=== PATIENT | male | born 1995 | race Caucasian/White ===

== ENCOUNTER 2016-11-13 21:34 | Emergency (ER) | payer BC ==
[2016-11-13 21:40] VITALS: RESP 16
[2016-11-13] MEDS ORDERED: KETOROLAC 30 MG/1 ML SDV IVP ONE (21:56)
[2016-11-13] MEDS ORDERED: NS 1,000 ML IV ONE ×2 (21:56)
--- NOTE | 2016-11-13 21:59 | EDPHY ---
HPI/HX/ROS/PE/MDM Narrative: CHIEF COMPLAINT: Vomiting, malaise HPI: The patient is a 21-year-old male with no significant past medical history. He has been in his usual state of health until this morning when he developed body aches, subjective fever, vomiting and diarrhea, both of which were nonbloody. Patient states he has been unable to hold down food or fluids secondary to vomiting. He complains of mild abdominal cramping only after significant emesis. He denies abdominal pain at this time. He has no known sick contacts. No history of antibiotic use, out of the country travel or unusual foods. REVIEW OF SYSTEMS: Aside from elements discussed in the HPI, a comprehensive 10-point review of systems was reviewed and is negative. PMH: None significant. No history of abdominal surgery. SOCIAL HISTORY: Single. Student. Denies alcohol or drug abuse. PHYSICAL EXAM: General:Patient is alert, in no acute distress. ENT:Eyes are normal to inspection. ENT inspection normal. Neck: Normal inspection. Full range of motion. Respiratory:No respiratory distress. Breath sounds normal bilaterally. Cardiovascular: Regular rate and rhythm. Strong peripheral pulses. Normal cap refill. Abdomen:The abdomen is nontender to palpation. There are no peritoneal signs. There are normal bowel sounds. Back: Normal to inspection. No tenderness to palpation. Skin: Normal color. No rash. Warm and dry. Extremities: Normal appearance. Full range of motion. Neuro: Oriented x3. Normal motor function. Normal sensory function. MDM: The patient was treated with IV fluid and Zofran. On re-evaluation at 11:40 p.m., he is remarkably better. He is tolerating fluids by mouth without difficulty. His vital signs are normal. I offered him further observation in the emergency department but he would like to go home. We discussed strict return precautions. There are multiple patients in the ER of the similar age and gender all with the same symptoms, so I suspect this likely represents a viral gastroenteritis. I have very low suspicion for appendicitis, bowel obstruction, sepsis, diverticulitis or C diff. - Data Points Laboratory Results: Laboratory Results 11/13/16 22:10 11/13/16 22:10 11/13/16 11/13/16 23:10 22:10 WBC 12.83 H 10^3/uL (3.80-9.50) RBC 5.49 10^6/uL (4.40-6.38) Hgb 17.4 g/dL (13.7-17.5) Hct 51.9 H % (40.0-51.0) MCV 94.5 fL (81.5-99.8) MCH 31.7 pg (27.9-34.1) MCHC 33.5 g/dL (32.4-36.7) RDW 13.2 % (11.5-15.2) Plt Count 199 10^3/uL (150-400) MPV 10.2 fL (8.7-11.7) Neut % (Auto) 92.5 H % (39.3-74.2) Lymph % (Auto) 2.7 L % (15.0-45.0) [place] % (Auto) 3.6 L % (4.5-13.0) Eos % (Auto) 0.4 L % (0.6-7.6) Baso % (Auto) 0.3 % (0.3-1.7) Nucleat RBC Rel Count 0.0 % (0.0-0.2) Absolute Neuts (auto) 11.87 H 10^3/uL (1.70-6.50) Absolute Lymphs (auto) 0.34 L 10^3/uL (1.00-3.00) Absolute Monos (auto) 0.46 10^3/uL (0.30-0.80) Absolute Eos (auto) 0.05 10^3/uL (0.03-0.40) Absolute Basos (auto) 0.04 10^3/uL (0.02-0.10) Absolute Nucleated RBC 0.00 10^3/uL (0-0.01) Immature Gran % 0.5 % (0.0-1.1) Immature Gran # 0.07 10^3/uL (0.00-0.10) Sodium 142 mEq/L (134-144) Potassium 4.6 mEq/L (3.5-5.2) Chloride 102 mEq/L (97-110) Carbon Dioxide 25 mEq/l (22-31) Anion Gap 15 mEq/L (8-16) BUN 18 mg/dL (7-23) Creatinine 1.0 mg/dL (0.7-1.3) Estimated GFR > 60 Glucose 96 mg/dL (70-100) Calcium 9.5 mg/dL (8.5-10.4) Lipase 39.0 IU/L (23-300) Influenza Typ A,B (DFA) NEGATIVE FOR FLU (NEGATIVE) Medications Given: Discontinued Medications Sodium Chloride (Ns) 1,000 mls @ 0 mls/hr IV ONCE ONE PRN Reason: Wide Open Stop: 11/13/16 21:57 Last Admin: 11/13/16 22:20 Dose: 1,000 mls Sodium Chloride (Ns) 1,000 mls @ 0 mls/hr IV ONCE ONE PRN Reason: Wide Open Stop: 11/13/16 21:57 Last Admin: 11/13/16 23:09 Dose: 1,000 mls Ketorolac Tromethamine (Toradol) 30 mg IVP EDNOW ONE Stop: 11/13/16 21:57 Last Admin: 11/13/16 22:20 Dose: 30 mg Ondansetron HCl (Zofran) 4 mg IVP EDNOW ONE Stop: 11/13/16 22:11 Last Admin: 11/13/16 22:20 Dose: 4 mg General Time Seen by Provider: 11/13/16 21:48 Initial Vital Signs: Initial Vital Signs Temperature (C) 36.4 C 11/13/16 21:37 Heart Rate 98 11/13/16 21:37 Respiratory Rate 16 11/13/16 21:37 Blood Pressure 130/81 H 11/13/16 21:37 O2 Sat (%) 98 11/13/16 21:37 O2 Delivery Mode Room Air Allergies/Adverse Reactions: No Known Allergies Allergy (Unverified 11/13/16 21:40) Home Medications: Medication Instructions Recorded Adderall 10 MG (*) 11/13/16 Departure - Departure Disposition: Home, Routine, Self-Care Clinical Impression: Gastroenteritis Condition: Good Instructions: Gastroenteritis (ED) Additional Instructions: Follow-up with your primary doctor within 72 hours. Return to the Emergency Department for worsening pain, fever, severe vomiting, change in character or severity of pain or other worsening of condition.
[2016-11-13] MEDS ORDERED: ONDANSETRON 4 MG/2 ML VIAL IVP ONE (22:10)
[2016-11-13 22:35] LABS: ANION GAP 15 mEq/L (8-16); CALCIUM 9.5 mg/dL (8.5-10.4); CARBON DIOXIDE 25 mEq/l (22-31); CHLORIDE 102 mEq/L (97-110); GLOMERULAR FILTRATION RATE > 60; GLUCOSE 96 mg/dL (70-100); POTASSIUM 4.6 mEq/L (3.5-5.2); SODIUM 142 mEq/L (134-144)
[2016-11-13 22:37] LABS: % IMMATURE GRANULYOCYTES 0.5 % (0.0-1.1); ABSOLUTE IMMATURE GRANULOCYTES 0.07 10^3/uL (0.00-0.10); ADD DIFF? NO; ADD MORPH? NO; ADD SCAN? NO; ATYPICAL LYMPHOCYTE FLAG 0 (0-99); FRAGMENT RBC FLAG 0 (0-99); HEMATOCRIT 51.9 % (40.0-51.0); HEMOGLOBIN 17.4 g/dL (13.7-17.5); LEFT SHIFT FLG 70 (0-99); LIPEMIA HEMOLYSIS FLAG 80 (0-99); MEAN CELL HEMOGLOBIN 31.7 pg (27.9-34.1); MEAN CELL HEMOGLOBIN CONCENTR. 33.5 g/dL (32.4-36.7); MEAN CELL VOLUME 94.5 fL (81.5-99.8); MEAN PLATELET VOLUME 10.2 fL (8.7-11.7); PLATELET CLUMPS FLAG 20 (0-99); PLATELET COUNT 199 10^3/uL (150-400); RED BLOOD CELL COUNT 5.49 10^6/uL (4.40-6.38); RED CELL DISTRIBUTION WIDTH 13.2 % (11.5-15.2)
[2016-11-13 23:11] VITALS: BP 118/63; PULSE 90; TEMP 97.9; O2SAT 93
[2016-11-13] MEDS ORDERED: ONDANSETRON 4MG PREPACK#2 BTL TAKEHOME ONE (23:41)
== END 2016-11-14 00:15 | disposition home or self-care (01) ==
DX: K52.9 Noninfective gastroenteritis and colitis, unspecified (principal)
CPT/HCPCS: 96374; J1885; J2405